=== PATIENT | male | born 1960 | race Caucasian/White ===

== ENCOUNTER 2020-06-16 11:27 | Inpatient (IN) | payer OTHER ==
[~2020-06-16] VITALS: Ht 182.9 cm; Wt 105.5 kg
[2020-06-16] MEDS ORDERED: LABETALOL 5MG/ML, 20ML ONE (11:38)
--- NOTE | 2020-06-16 11:45 | NUR ---
[facility]IB [facility] # [id number] FOR CONFUSION STARTING YESTERDAY AT 11 WH[facility] A [place]OU[place]. PT WAS AT WORK YESTERDAY AND WAS EXPERENCING RIGHT EYE PERIPHERAL VISION LOSS WHEN HI HIT HIS HEAD ON A SIGN (RIGHT SIDE). PER EMS BP 230/120 GIVEN 5MG OF METOPROLOL. BS 278. 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 MD QUEZADA AT BEDSIDE. WENT OVER PLAN OF CARE. AGREES TO PLAN. RIGHT BLURRY VISION.
[2020-06-16] MEDS ORDERED: LABETALOL 5MG/ML, 20ML IVPush ONE (12:00)
--- NOTE | 2020-06-16 12:11 | NUR ---
RECEIVED REPORT FROM JAY CA. PT MOVED TO ROOM 15. PT RESTING ON [facility]. MATT. MONITORS IN PLACE. VSS.
[2020-06-16 12:13] LABS: BASOPHILS % (AUTO) 1 % (0-1); EOSINOPHILS % (AUTO) 1 % (1-7); LYMPHOCYTES % (AUTO) 23 % (22-44); MEAN CORPUSCULAR HEMOGLOBIN 31.9 pg (27.5-34.5); MEAN PLATELET VOLUME 8.7 fL (7.4-10.4); MONOCYTES % (AUTO) 9 % (2-9); NEUTROPHILS % (AUTO) 66 % (42-75); PLATELET COUNT 176 x10^3/uL (130-400); RED BLOOD COUNT 4.94 x10^6/uL (4.38-5.82); RED CELL DISTRIBUTION WIDTH 14.8 % (9.4-14.8)
[2020-06-16 12:16] LABS: MD NO
[2020-06-16 12:21] LABS: INTERNATIONAL NORMALIZED RATIO 1.05 (0.93-1.1); PROTHROMBIN TIME 11.2 Seconds (9.6-11.5)
--- NOTE | 2020-06-16 12:49 | NUR ---
SPOKE W/ CHIRAG FROM CT IN REGARDS OF NEED FOR CT SCANS. STATES NOW THAT LABWORK COMPLETE WILL COME PICK PT UP.
--- NOTE | 2020-06-16 12:55 | NUR ---
PT RESTING ON GURNEY. NADN. [place].
[2020-06-16 13:53] LABS: ALANINE AMINOTRANSFERASE 28 U/L (12-78); ALBUMIN 4.1 g/dL (3.4-5.0); ANION GAP 9 mmol/L (5-15); CALCIUM 8.8 mg/dL (8.5-10.1); CHLORIDE 101 mmol/L (98-107); CREATININE 1.12 mg/dL (0.7-1.3)
[2020-06-16 13:55] LABS: ALKALINE PHOSPHATASE 46 U/L (45-117); BILIRUBIN,TOTAL 0.5 mg/dL (0.2-1.0); TOTAL PROTEIN 7.3 g/dL (6.4-8.2)
[2020-06-16] MEDS ORDERED: ASPIRIN 81 MG TABLET CHEW PO ONE (13:59)
--- NOTE | 2020-06-16 14:15 | NUR ---
PT RESTING ON GURNEY. NADN. [place].
[2020-06-16] MEDS ORDERED: PLEASE ENTER HEIGHT AND WEIGHT MC SCH (14:30)
[2020-06-16] MEDS ORDERED: ASPIRIN 325 MG TABLET PO STA (14:45)
[2020-06-16] MEDS ORDERED: ASPIRIN 325 MG TABLET ONE (14:48)
[2020-06-16] MEDS ORDERED: CLOPIDOGREL 75 MG TABLET ONE (14:48)
[2020-06-16] MEDS ORDERED: ACAM333T7 PO (14:58)
[2020-06-16] MEDS ORDERED: SIMV80TA18 PO (14:58)
[2020-06-16] MEDS ORDERED: LOSA50TA14 PO (14:58)
[2020-06-16] MEDS ORDERED: PIOG45TA64 PO (14:58)
[2020-06-16] MEDS ORDERED: METF500T17 PO ×2 (14:58→18:28)
[2020-06-16] MEDS ORDERED: FOLI0.4T5 PO (14:58)
[2020-06-16] MEDS ORDERED: CLON0.5T PO (14:58)
[2020-06-16] MEDS ORDERED: OMEG1CAP23 PO (14:58)
[2020-06-16] MEDS ORDERED: VENL100T PO (14:58)
[2020-06-16] MEDS ORDERED: MULT-658 PO (14:58)
[2020-06-16] MEDS ORDERED: METO25TA35 PO (14:58)
[2020-06-16] MEDS ORDERED: EMPA25TA PO (14:58)
[2020-06-16] MEDS ORDERED: ASPIRIN 325 MG TABLET PO ONE (15:00)
--- NOTE | 2020-06-16 15:11 | NUR ---
REPORT GIVEN TO DEAN RIOS RN. ALL QUESTIONS ANSWERED. AWAITING PT TRANSPORT.
[2020-06-16] MEDS ORDERED: LABETALOL 5MG/ML, 20ML IV PRN (15:30)
[2020-06-16] MEDS ORDERED: ONDANSETRON 4 MG TABLET PO PRN (15:30)
[2020-06-16] MEDS ORDERED: ONDANSETRON 2MG/ML, 2ML IVPush PRN (15:30)
[2020-06-16 16:30] VITALS: BP 178/114
[2020-06-16] MEDS ORDERED: METO-93 PO (18:26)
[2020-06-16 20:42] VITALS: BP 163/96
[2020-06-16] MEDS ORDERED: ATORVASTATIN 80 MG TABLET PO SCH (21:00)
[2020-06-16] MEDS: INSULIN LISPRO 100 UNITS/ML, PEN SQ-INSULIN SCH (21:18)
[2020-06-16 22:00] VITALS: BP 134/84
[2020-06-17 00:05] VITALS: BP 117/78
[2020-06-17 01:33] VITALS: BP 120/73
[2020-06-17 02:01] VITALS: BP 128/80
[2020-06-17 06:09] VITALS: BP 137/80
[2020-06-17 06:29] LABS: CHOL/HDL RATIO 5.9; LDL/HDL RATIO 3.4 (0.5-3.0)
[2020-06-17] MEDS: INSULIN LISPRO 100 UNITS/ML, PEN SQ-INSULIN SCH ×5 (07:24→16:45)
[2020-06-17] MEDS ORDERED: METOPROLOL TARTRATE 50 MG TAB PO SCH (09:00)
[2020-06-17] MEDS ORDERED: PIOGLITAZONE 15 MG TABLET PO SCH (09:00)
[2020-06-17] MEDS ORDERED: (Empagliflozin (Jardiance) 25 MG) HOMEMEDPO SCH (09:00)
[2020-06-17] MEDS ORDERED: VENLAFAXINE 75 MG CAP ER PO SCH (09:00)
[2020-06-17] MEDS ORDERED: CLOPIDOGREL 75 MG TABLET PO SCH (09:00)
[2020-06-17] MEDS ORDERED: ACETAMINOPHEN 325 MG TABLET PO PRN (10:00)
[2020-06-17 10:18] VITALS: BP 144/83
[2020-06-17] MEDS ORDERED: KETOROLAC 30 MG/1 ML IVPush SCH (14:00)
[2020-06-17] MEDS ORDERED: KETOROLAC 30 MG/1 ML ONE (14:03)
[2020-06-17] MEDS ORDERED: KETOROLAC 30 MG/1 ML IVPush ONE (14:30)
[2020-06-17 14:45] VITALS: BP 159/90
[2020-06-17] MEDS ORDERED: CLOP75TA52 PO (15:01)
[2020-06-17] MEDS ORDERED: ASPI81TA45 PO (15:02)
== END 2020-06-17 18:46 | disposition home or self-care (01) | DRG 65 ==
LOC: ED 12:53 → EDIP 13:56 → SUATTDRO 14:19 → 4WST 16:15
PROVIDERS: ADMIT Hospitalist; ATTEND Family Medicine
DX: I63.532 Cerebral infarction due to unspecified occlusion or stenosis of left posterior cerebral artery (principal); I16.1 Hypertensive emergency; I65.23 Occlusion and stenosis of bilateral carotid arteries; J44.9 Chronic obstructive pulmonary disease, unspecified; R29.701 NIHSS score 1; C76.0 Malignant neoplasm of head, face and neck; E11.9 Type 2 diabetes mellitus without complications; E66.9 Obesity, unspecified; E78.5 Hyperlipidemia, unspecified; I65.29 Occlusion and stenosis of unspecified carotid artery; G51.0 Bell's palsy; H53.40 Unspecified visual field defects; H54.7 Unspecified visual loss; I10 Essential (primary) hypertension; Z68.31 Body mass index [BMI] 31.0-31.9, adult; Z79.02 Long term (current) use of antithrombotics/antiplatelets; Z79.82 Long term (current) use of aspirin; Z85.89 Personal history of malignant neoplasm of other organs and systems; Z86.73 Personal history of transient ischemic attack (TIA), and cerebral infarction without residual deficits; Z91.19 Patient's noncompliance with other medical treatment and regimen; Z92.3 Personal history of irradiation; Z92.21 Personal history of antineoplastic chemotherapy; Z79.899 Other long term (current) drug therapy; Z79.891 Long term (current) use of opiate analgesic; Z79.01 Long term (current) use of anticoagulants
CPT/HCPCS: 36415; 70450; 70496; 70498; 70551; 80053; 80061; 82962; 82977; 83036; 85025; 85610; 85730; 93005; 93880; 96374; 99291; G0378; J1885; 92523-GN; J1815

== ENCOUNTER 2020-06-19 12:39 | Inpatient (IN) | payer OTHER ==
[~2020-06-19] VITALS: Ht 182.9 cm; Wt 105.4 kg
[~2020-06-19 12:39] MED LIST: ACAM333T7 PO; ASPI81TA45 PO; CLON0.5T PO; CLOP75TA52 PO; EMPA25TA PO; FOLI0.4T5 PO; LOSA50TA14 PO; METF500T17 PO; METO-93 PO; METO25TA35 PO; MULT-658 PO; OMEG1CAP23 PO; PIOG45TA64 PO; SIMV80TA18 PO; VENL100T PO
--- NOTE | 2020-06-19 12:42 | NUR ---
PT BROUGHT IN BY JOSIAH FROM HOME WITH CHIEF COMPLAINT OF FEELING "OFF" AND VISION CHANGES. PT RECENTELY D/C (06/18) FROM [facility] FOR CVA. PT REPORTS VISION CHANGES STARTED AT 8 AM THIS AM. HASNT BEEN ABLE TO START PLAVIX. PT IS ALERT & ORIENTED, NO OTHER COMPLAITS AT THIS TIME. VSS
--- NOTE | 2020-06-19 13:19 | NUR ---
ERMD SAHM AT BEDSIDE FOR EVAL. NO NEURO CHANGES.
[2020-06-19 14:00] LABS: ALBUMIN 4.2 g/dL (3.4-5.0); ANION GAP 8 mmol/L (5-15); CALCIUM 8.4 mg/dL (8.5-10.1); CHLORIDE 104 mmol/L (98-107)
[2020-06-19] MEDS ORDERED: SODIUM CHLORIDE FLUSH 10ML SYR IVF ONE (14:00)
[2020-06-19 14:04] LABS: ALANINE AMINOTRANSFERASE 27 U/L (12-78); ALKALINE PHOSPHATASE 47 U/L (45-117); BILIRUBIN,TOTAL 0.7 mg/dL (0.2-1.0); CREATININE 1.13 mg/dL (0.7-1.3); TOTAL PROTEIN 7.5 g/dL (6.4-8.2)
[2020-06-19 14:08] LABS: BASOPHILS % (AUTO) 0 % (0-1); EOSINOPHILS % (AUTO) 1 % (1-7); LYMPHOCYTES % (AUTO) 15 % (22-44); MEAN CORPUSCULAR HEMOGLOBIN 31.8 pg (27.5-34.5); MEAN CORPUSCULAR HGB CONC 33.4 g/dL (33.2-36.2); MONOCYTES % (AUTO) 7 % (2-9); NEUTROPHILS % (AUTO) 78 % (42-75); PLATELET COUNT 187 x10^3/uL (130-400); RED BLOOD COUNT 4.77 x10^6/uL (4.38-5.82); RED CELL DISTRIBUTION WIDTH 14.8 % (9.4-14.8)
[2020-06-19 14:12] LABS: MD NO
--- NOTE | 2020-06-19 14:15 | NUR ---
PT RESTING IN BED. POC DISCUSSED. VSS, NO NEURO CHANGES
--- NOTE | 2020-06-19 14:20 | NUR ---
PT TO CT
[2020-06-19] MEDS ORDERED: SODIUM CHLORIDE FLUSH 10ML SYR IVF PRN (14:30)
--- NOTE | 2020-06-19 14:59 | NUR ---
REPORT CALLED TO [facility].
[2020-06-19] MEDS ORDERED: ONDANSETRON 4 MG TABLET PO PRN (15:30)
[2020-06-19] MEDS ORDERED: morphine SULFATE 10 MG/ML, 1ML IVPush PRN (15:30)
[2020-06-19] MEDS ORDERED: HYDROcodone/APAP 5/325 TABLET PO PRN (15:30)
[2020-06-19] MEDS ORDERED: ONDANSETRON 2MG/ML, 2ML IVPush PRN (15:30)
[2020-06-19 16:21] VITALS: BP 180/101
[2020-06-19 19:07] VITALS: BP 162/81
[2020-06-19 20:00] VITALS: BP 122/73
[2020-06-19 22:22] VITALS: BP 143/72
[2020-06-20 00:01] VITALS: BP 153/90
[2020-06-20 01:58] VITALS: BP 152/86
[2020-06-20 03:47] VITALS: BP 150/89
[2020-06-20 07:25] VITALS: BP 150/90
[2020-06-20] MEDS ORDERED: ASPIRIN 81 MG TABLET CHEW PO/NG SCH (09:00)
[2020-06-20] MEDS ORDERED: CLOPIDOGREL 75 MG TABLET PO SCH (09:30)
[2020-06-20 13:07] VITALS: BP 141/82
[2020-06-20 16:31] VITALS: BP 162/99
[2020-06-21] MEDS ORDERED: ASPIRIN 81 MG TABLET EC PO SCH (09:00)
== END 2020-06-20 17:44 | disposition home or self-care (01) | DRG 65 ==
LOC: ED 13:53 → 4WST 14:27
PROVIDERS: ADMIT Family Medicine; ATTEND Family Medicine
DX: I63.532 Cerebral infarction due to unspecified occlusion or stenosis of left posterior cerebral artery (principal); H53.129 Transient visual loss, unspecified eye; H54.61 Unqualified visual loss, right eye, normal vision left eye; R47.01 Aphasia; I11.9 Hypertensive heart disease without heart failure; I65.23 Occlusion and stenosis of bilateral carotid arteries; Z79.02 Long term (current) use of antithrombotics/antiplatelets; Z79.82 Long term (current) use of aspirin; H53.461 Homonymous bilateral field defects, right side; E11.9 Type 2 diabetes mellitus without complications; Z85.89 Personal history of malignant neoplasm of other organs and systems; Z91.19 Patient's noncompliance with other medical treatment and regimen
CPT/HCPCS: 36415; 70450; 71045; 80053; 82962; 85025; 93005; 93306; 99285; G0378